=== PATIENT | male | born 1940 | race Hispanic/Latino ===

== ENCOUNTER 2020-02-13 12:06 | Observation (INO) | payer MEDICARE, BC ==
[~2020-02-13] VITALS: Ht 162.6 cm; Wt 80.3 kg
[~2020-02-13 12:06] MED LIST: AMIO200T PO; ASPI-667 PO; ATOR20TA PO; LACT1CAP5 PO; LISI10TA2 PO; METO-238 PO; POTA10TA6 PO; WARF-35 PO; WARF2TAB98 PO; WARF5TAB2 PO
[2020-02-13 14:50] VITALS: BP 110/77
--- NOTE | 2020-02-13 18:15 | ER.PDOC ---
General Chief Complaint: Flank Pain Stated Complaint: BACK PAIN Time seen by MD: 18:10 Source: patient Exam Limitations: language barrier History of Present Illness Initial Comments Patient with a several day history of difficulty urinating, and bilateral flank pain, as well lower abdominal pain. Timing/Duration: getting worse, other (2-3 days) Severity/Quality: moderate Radiation: flank (bilateral) Associated Symptoms: back pain, nausea/vomiting (No vomiting) Exacerbated by: other Relieved By: nothing Allergies: Coded Allergies: No Known Allergies (Unverified , 12/20/14) Home Meds Active Scripts Potassium Chloride (KLOR-CON 10) 10 Meq Tablet.er, 20 MEQ PO DAILY, #60 Prov:DARIA GRIFFIN MD 12/23/14 Warfarin Sodium (COUMADIN) 5 Mg Tablet, 5 MG PO 17, #30 TABLET Prov:DARIA GRIFFIN MD 12/23/14 Amiodarone Hcl (CORDARONE) 200 Mg Tablet, 200 MG PO BID, #60 TABLET Prov:DARIA GRIFFIN MD 12/23/14 Reported Medications Lactobacillus Rhamnosus R0011 (PROBIOTIC DIGESTIVE CARE) 1 Each Capsule, 1 EACH PO DAILY, CAPSULE 12/20/14 Lisinopril (LISINOPRIL) 10 Mg Tablet, 1 TAB PO DAILY, #30 TAB 5 Refills 12/20/14 Aspirin (ASPIRIN) 81 Mg Tab.chew, 1 TAB PO DAILY, #30 TAB 3 Refills 12/20/14 Atorvastatin 20MG (LIPITOR 20MG) 20 Mg Tablet, 1 TAB PO DAILY, #90 TAB 1 Refill 12/20/14 Metoprolol Succinate (METOPROLOL SUCCINATE) 100 Mg Tab.er.24h, 1 TAB PO DAILY, #30 TAB 5 Refills 12/20/14 Vital Signs First Vital Signs Date Time Temp Pulse Resp B/P (MAP) Pulse Ox O2 Delivery O2 Flow Rate FiO2 02/13/20 14:50 97.7 63 16 02/13/20 14:50 100 Last Vital Signs Date Time Temp Pulse Resp B/P (MAP) Pulse Ox O2 Delivery O2 Flow Rate FiO2 02/13/20 14:50 97.7 63 16 100 Past Medical History Medical History: arrhythmia, coronary artery disease, hypertension Surgical History: pacemaker/ICD Social History Alcohol Use: none Drug Use: none Reviewed Nursing Reviewed: Vital Signs, Abn. Noted, Nursing Assessment Constitutional: malaise EENTM: no symptoms reported Respiratory: no symptoms reported Cardiovascular: no symptoms reported Gastrointestinal: abdominal pain; denies constipated, denies diarrhea, denies difficulty swallowing; nausea; denies vomiting Genitourinary: dysuria, flank pain, pain, urgency, other (difficulty with urination) Musculoskeletal: no symptoms reported Skin: no symptoms reported Psychiatric/Neurological: no symptoms reported Endocrine: no symptoms reported Hematologic/Lymphatic: no symptoms reported All Other Systems: Reviewed and Negative Physical Exam General Appearance: WD/WN, Mild Distress HEENT: PERRL/EOMI, Normal ENT Inspection, TMs Normal, Pharynx Normal Neck: Non-Tender, Full Range of Motion, Supple, Normal Inspection Respiratory: chest non-tender, lungs clear, normal breath sounds, no respiratory distress, no accessory muscle use Cardiovascular: Normal Peripheral Pulses, Regular Rate, Rhythm, No Edema, No Gallop, No JVD, No Murmur Gastrointestinal: Normal Bowel Sounds, Guarding, Tenderness (Suprapubic) Back: CVA Tenderness (R) Extremities: Normal Range of Motion, Non-Tender, Normal Inspection, No Pedal Edema, No Calf Tenderness, Normal Capillary Refill, Pelvis Stable Neurologic/Psychiatric: systems spec II-XII NML as Tested, No Motor/Sensory Deficits, Alert, Normal Mood/Affect, Oriented x 3 Skin: Normal Color, Warm/Dry Lymphatic: No Adenopathy Results/Orders Results/Orders Orders - DIGNA BARROS DO Calcium Gluconate (Calcium Gluconate) (02/13/20 19:56) Ct Abd/Pelvis Wo Iv Contrast (02/13/20 20:08) Routine Vital Signs (02/13/20 20:15) Regular Diet (02/14/20 Breakfast) Intake & Output (02/13/20 20:15) Up In Chair (02/13/20 20:15) Cbc With Auto Diff (02/14/20 05:00) Comprehensive Metabolic Panel (02/14/20 05:00) Admit Orders (02/13/20 20:15) Bed Alarm (02/13/20 20:15) Fall Precautions (02/13/20 20:15) Bedrest With Po Ambulat/Assist (02/13/20 20:15) 0.9 % Sodium Chloride (Ns 1000ml) (02/13/20 20:30) Vital Signs Date Time Temp Pulse Resp B/P (MAP) Pulse Ox O2 Delivery O2 Flow Rate FiO2 02/13/20 14:50 97.7 63 16 100 02/13/20 14:50 97.7 63 16 100 02/13/20 14:50 97.7 63 16 Laboratory Tests Test 02/13/20 18:20 02/13/20 18:25 02/13/20 19:20 White Blood Count 11.3 10^3/uL (4.5-11.0) H Red Blood Count 5.11 10^6/uL (4.50-5.90) Hemoglobin 15.3 g/dL (13.9-16.3) Hematocrit 47.2 % (37.0-53.0) Mean Corpuscular Volume 92.4 fL (78-100) Mean Corpuscular Hemoglobin 29.9 pg (26-34) Mean Corpuscular Hemoglobin Concent 32.4 g/dL (33-36.5) L Red Cell Distribution Width 15.3 % (11.5-14.5) H Platelet Count 187 10^3/uL (150-400) Mean Platelet Volume 9.5 fL (7.8-11.0) Neutrophils (%) (Auto) 60.4 % (41.0-85.0) Lymphocytes (%) (Auto) 28.7 % (24.0-44.0) Monocytes (%) (Auto) 9.4 % (5.0-12.0) Neutrophils # (Auto) 6.9 10^3/uL (1.8-7.7) Lymphocytes # (Auto) 3.25 10^3/uL1 (1.0-4.8) Monocytes # (Auto) 1.1 10^3/uL (0.3-0.8) H Absolute Immature Granulocyte (auto 0.02 10^3 u/L (0-2) Absolute Eosinophils (auto) 0.1 10^3/uL (0.0-0.2) Immature Granulocytes % 0.20 % (0.00-0.50) Eosinophils % 1.1 % (0.0-5.0) Basophils % 0.2 % (0.0-0.2) Basophils # 0.0 10^3/uL (0.0-0.1) Sodium Level 138 mmol/L (132-145) Potassium Level 4.4 mmol/L (3.6-5.2) Chloride Level 104.0 mmol/L (96-109) Carbon Dioxide Level 22.4 mmol/L (20.0-32) Anion Gap 16.0 Blood Urea Nitrogen 41 mg/dL (7-18) H Creatinine 3.03 mg/dL (0.59-1.40) *H Estimated GFR () 24.3 (>/=60) Est GFR (CKD-EPI)(Non-Afr Tajik) 20.1 (>/=60) BUN/Creatinine Ratio 13.0 Glucose Level 118 mg/dL (70-110) H Calcium Level 9.0 mg/dL (8.4-10.5) Total Bilirubin 0.8 mg/dL (0.2-1.0) Aspartate Amino Transferase (AST) 29 U/L (0-35) Alanine Aminotransferase (ALT) 19 U/L (12-78) Alkaline Phosphatase 157 U/L (50-136) H Total Protein 8.2 g/dL (6.4-8.2) Albumin 3.4 g/dL (3.4-5.0) Globulin 4.8 Albumin/Globulin Ratio 0.708 Urine Collection Type UNKNOWN Urine Color YELLOW (YELLOW) Urine Appearance CLEAR (CLEAR) Urine Bilirubin NEGATIVE MG/DL (NEGATIVE) Urine Ketones NEGATIVE (NEGATIVE) Urine Specific [place] 1.015 (1.005-1.035) Urine pH 8.0 (5.0-6.0) Urine Protein 30 mg/dL (NEGATIVE) H Urine Urobilinogen NORMAL (NEGATIVE) Urine Nitrate NEGATIVE (NEGATAIVE) Urine Leukocyte Esterase LARGE (NEGATIVE) Urine Blood SMALL (NEGATIVE) Urine RBC 0-2 RBC/HPF (NONE SEEN) Urine WBC 2-5 WBC/HPF (0-2) Urine Squamous Epithelial Cells RARE #/HPF (FEW) Urine Bacteria NONE SEEN (NONE SEEN) Urine Glucose NORMAL (NEGATIVE) Magnesium Level 2.3 mg/dL (1.8-2.4) Progress Progress Discussed with Dr. Barros at shift change. BUN 41, Creat 3.03, Ca <5.0, UA WNL; 1 amp Ca-gluconate ordered; lab called at 2011 reporting initial Ca was lab error--repeat = 9.0 EKG/XRAY/CT/US EKG Comments: NSR, VR 66, borderline prolonged QT 459, no acute STT changes Consult/PCP Time Consult/PCP Called: 20:03 Consult/PCP: Dr. Green Reason/Comments: will admit #2 Time Consult/PCP Called: 21:25 Consult/PCP: Discussed CT findings with Dr. Green Reason/Comments: will admit here if Dr. Hua can/will consult #3 Time Consult/PCP Called: 21:25 Consult/PCP: DR. Hua Reason/Comments: tried home/cell--VM not set up (verified with house, he is not OOT) ER DEPART Departure Time of Disposition: 20:03 Disposition: 09 ADMITTED INPATIENT Impression: Primary Impression: Renal insufficiency Additional Impression: Acute pyelonephritis Condition: Stable Referrals: PCP,UNKNOWN (PCP) PRIMARY CARE PROVIDER Duration or Time Spent with Pa: 20 min Problem Qualifiers FISH DEGROOT DO Feb 13, 2020 18:15 DIGNA BARROS DO Feb 13, 2020 19:44
[2020-02-13] MEDS ORDERED: LACTATED RINGERS 1,000 ML IV STA (18:27)
[2020-02-13] MEDS ORDERED: LACTATED RINGERS 1,000 ML ONE (18:40)
[2020-02-13 18:41] LABS: CARBON DIOXIDE 22.4 mmol/L (20.0-32)
[2020-02-13 18:45] LABS: BASOPHIL % 0.2 % (0.0-0.2); EOSINOPHIL # 0.1 10^3/uL (0.0-0.2); EOSINOPHIL % 1.1 % (0.0-5.0); LYMPHOCYTES # 3.25 10^3/uL1 (1.0-4.8); LYMPHOCYTES % 28.7 % (24.0-44.0); MEAN CORP HGB 29.9 pg (26-34); MONOCYTES # 1.1 10^3/uL (0.3-0.8); MONOCYTES % 9.4 % (5.0-12.0); NEUTROPHIL # 6.9 10^3/uL (1.8-7.7); NEUTROPHILS % 60.4 % (41.0-85.0); PLATELET COUNT 187 10^3/uL (150-400); RED CELL DISTRIBUTION WIDTH 15.3 % (11.5-14.5)
[2020-02-13 19:00] LABS: APPEARANCE,URINE CLEAR (CLEAR); BILIRUBIN,URINE NEGATIVE (NEGATIVE); UA COLOR YELLOW (YELLOW)
[2020-02-13 19:01] LABS: UROBILINOGEN,URINE NORMAL (NEGATIVE)
--- NOTE | 2020-02-13 19:51 | PCM.EKG ---
[facility] Test Date: 2020-02-13 Test Time: 19:47:52 Pat Name: MERI EDWARDS [facility]: [id number]: 340 Gender: M Transit Specialist: JUDY : 1940 Requested By: FISH DEGROOT Order Number: [id number] Reading MD: Measurements Intervals [place] Rate: 66 P: 55 OH: 176 QRS: 39 QRSD: 103 T: 59 QT: 459 QTc: 481 Interpretive Statements Sinus rhythm Borderline prolonged QT interval No previous ECG available for comparison Please click the below link to view image of tracing.
[2020-02-13] MEDS ORDERED: CALCIUM GLUCONATE IV STA (19:56)
--- NOTE | 2020-02-13 21:16 | DIREP ---
PROCEDURE:CT ABDOMEN/PELVIS W/O CONTRAST COMPARISON:None. INDICATIONS:renal insufficiency r/o obstructive process TECHNIQUE:Axial images were created through the abdomen and pelvis without intravenous contrast material. No oral contrast was administered. Sagittal and coronal reconstructions were performed from source images. FINDINGS: LUNG BASES:Apparent bibasilar atelectasis. Infiltrate is considered less likely. There are multiple nodular opacities at the right lung base, including a conglomerate of approximately 3 nodules measuring approximately 7, 6 and 4 mm at the right lung base. A few additional smaller nodules are also noted. Distal aspect of cardiac pacing leads noted. LIVER:No suspicious focal hepatic lesion. BILIARY:Tiny layering calculi within the dependent aspect of the gallbladder. There is no gallbladder wall thickening or pericholecystic inflammatory stranding. No significant intrahepatic or extrahepatic biliary ductal dilatation is appreciated. PANCREAS:No suspicious pancreatic abnormality. SPLEEN:The spleen is not significantly enlarged. No focal splenic lesion identified. ADRENALS:The adrenal glands are unremarkable. URINARY TRACT:There are bilateral peripelvic and renal cortical cysts with scattered areas of cortical volume loss and scarring, particularly involving the posterior aspect of the lower pole right kidney. There is mild left-sided hydroureteronephrosis with fairly diffuse perinephric and periureteral fat stranding, suspicious for ascending urinary tract infection with left pyelonephritis. There is mild right hydroureteronephrosis is well. No obstructing calculi are identified. AORTA/VASCULAR:Tortuosity of the abdominal aorta without aneurysmal dilatation. RETROPERITONEUM:Retroperitoneal fat stranding appears centered about the left ureter. BOWEL/MESENTERY:Tiny hiatal hernia. No evidence for small bowel obstruction. No gross colonic abnormality. Nonvisualization of the appendix without secondary signs to suggest acute appendicitis. No free air. ABDOMINAL WALL:No significant hernia. PELVIC ORGANS:The urinary bladder is at least moderately distended. The prostate gland is significantly enlarged, measuring approximately 6.2 x 6.2 cm in AP and transverse dimensions. No significant free fluid within the pelvis. 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 There are advanced degenerative changes of the spine with mild compression deformity at T12. CONCLUSION: 1. Mild bilateral hydroureteronephrosis without obstructing calculi. The urinary bladder is at least moderately distended with significantly enlarged prostate gland. Constellation of findings are suspicious for chronic bladder outlet obstruction secondary to the enlarged prostate gland. There is left retroperitoneal and left perinephric fat stranding, suggestive of ascending urinary tract infection with left pyelonephritis. Please correlate with urinalysis. Focal areas of cortical volume loss involving the posterior aspect of the lower pole right kidney would suggest sequela of previous infection. 2. Ill-defined sclerotic foci scattered throughout the imaged axial skeleton are suspicious for osteoblastic metastatic disease. Prostate cancer would be the most common etiology in a male patient of this age group. Consider correlation with PSA as clinically warranted. 3. Multiple small nodules at the right lung base are nonspecific and are superimposed on a background of presumed senescent changes with scattered areas of atelectasis. 4. Cholelithiasis without secondary signs to suggest acute cholecystitis. 5. Additional findings as discussed above. Dictated by: Ernesto Palomino M.D. On 02/13/2020 at 09:03 PM
[2020-02-13] MEDS ORDERED: ROCEPHIN ONE (21:17)
[2020-02-13] MEDS ORDERED: ROCEPHIN 1,000 MG in NS 100ML 100 ML IV STA (21:27)
--- NOTE | 2020-02-13 22:31 | PCM.HP ---
History of Present Illness Hx of Present Illness Patient with a several day history of difficulty urinating, and bilateral flank pain, as well lower abdominal pain. Patient states that he has been having difficulty urinating and frequency. He denies any previous known history of prostate problems or prostate cancer is symptoms have getting been getting worse over the past 2 to 3 days with nausea no vomiting back and flank pain bilaterally. Franco catheter was placed as patient was retaining urine he has experienced relief since placement of the catheter. CT in ER showed the followin. Mild bilateral hydroureteronephrosis without obstructing calculi. The urinary bladder is at least moderately distended with significantly enlarged prostate gland. Constellation of findings are suspicious for chronic bladder outlet obstruction secondary to the enlarged prostate gland. There is left retroperitoneal and left perinephric fat stranding, suggestive of ascending urinary tract infection with left pyelonephritis. Please correlate with urinalysis. Focal areas of cortical volume loss involving the posterior aspect of the lower pole right kidney would suggest sequela of previous infection. 2. Ill-defined sclerotic foci scattered throughout the imaged axial skeleton are suspicious for osteoblastic metastatic disease. Prostate cancer would be the most common etiology in a male patient of this age group. Consider correlation with PSA as clinically warranted. Travel History EBOLA RISK:Travel to/contact w: No Review of Systems Constitutional: No: Fever, Chills, Sweats, Weakness, Malaise, Other Eyes: No: Pain, Vision change, Conjunctivae inflammation, Eyelid inflammation, Other, Redness ENT: No: Ear pain, Ear discharge, Nose pain, Nose discharge, Nose congestion, Mouth pain, Mouth swelling, Throat pain, Throat swelling, Other Respiratory: No: Cough, Dry, Shortness of breath, SOB with excertion, Wheezing, Hemoptysis, Pleuritic Pain, Sputum, Wheezing, Other Gastrointestinal: Nausea, Abdominal Pain; No: Vomiting Genitourinary: Frequency, Retention Musculoskeletal: No: other, neck pain, shoulder pain, arm pain, back pain, hand pain, leg pain, foot pain Skin: No: Rash, Lesions, Jaundice, Bruising, Other Neurological: No: Weakness, Numbness, Incoordination, Change in speech, Confusion, Seizures, Other Allergies: Coded Allergies: No Known Allergies (Unverified , 12/20/14) Scheduled Amiodarone Hcl (Cordarone), 200 MG PO BID Aspirin (Aspirin), 1 TAB PO DAILY, (Reported) Atorvastatin 20MG (Lipitor 20MG), 1 TAB PO DAILY, (Reported) Lactobacillus Rhamnosus R0011 (Probiotic Digestive Care), 1 EACH PO DAILY, (Reported) Lisinopril (Lisinopril), 1 TAB PO DAILY, (Reported) Metoprolol Succinate (Metoprolol Succinate), 1 TAB PO DAILY, (Reported) Potassium Chloride (Klor-Con 10), 20 MEQ PO DAILY Warfarin Sodium (Coumadin), 5 MG PO 17 VTE VTE Risk Score VTE Risk: Score 0-1 = Low Risk (Aggressive mobilization; early ambulation; no VTE prophylaxis required) Score 2: Moderate Risk (Intermittent/Pneumatic Compression Device OR Lovenox/Heparin/Coumadin) Score 3-4: High Risk (Intermittent/Pneumatic Compression Device AND Lovenox/Heparin/Coumadin) Score > or =5: Highest Risk (Intermittent/Pneumatic Compression Device AND Lovenox/Heparin/Coumadin) Mechanical device ordered: Yes Exam Vital Signs Vital Signs Date Time Temp Pulse Resp B/P (MAP) Pulse Ox O2 Delivery O2 Flow Rate FiO2 02/13/20 14:50 97.7 63 16 100 General Appearance: Alert, Oriented X3, Cooperative HEENT: Atraumatic, PERRLA Respiratory: Clear to auscultation Cardiovascular: Regular rate, Normal S1 Abdominal: Other (Franco catheter in place his abdominal pain has improved since placement of the catheter) Extremities: No clubbing, No cyanosis Skin: No rash, No breakdown Neuro: Normal gait, Normal speech, Strength at 5/5 X4 ext, Sensation intact, Cranial nerves 3-12 NL Psych/Mental Status: Mood NL Assessment/Plan Assessment/Plan Assessment/Plan Assessment: 79-year-old male with constellations of findings consistent with prostate cancer that has metastasized no presents with urinary outlet obstruction that appears to be acute on chronic with pyelonephritis Plan: Prostate hyperplasia with urinary obstruction: Obtain PSA with a.m. labs consult Dr. Hua with urology in the a.m. Franco catheter placed to relieve obstruction clear infection due to urine stasis Pyelonephritis: We will treat with ceftriaxone pending urine cultures Renal insufficiency: Likely due to the above last creatinine approximately 5 years ago was 1 creatinine is 3 today we will recheck in the minimum after relieving obstruction and hydrating DVT prophylaxis SCDs Problems: (1) Acute pyelonephritis Status: Acute ICD Code: N10 - Acute pyelonephritis SNOMED: 41422987 (2) Renal insufficiency Status: Acute ICD Code: N28.9 - Disorder of kidney and ureter, unspecified SNOMED: 918628350, [id number] (3) Prostate hyperplasia with urinary obstruction ICD Code: N40.1 - Benign prostatic hyperplasia with lower urinary tract symptoms; N13.8 - Other obstructive and reflux uropathy SNOMED: [id number], [id number] Patient History: Patient reports no known family medical history. JACQUELINE CALLE MD Feb 13, 2020 22:31
[2020-02-13] MEDS ORDERED: SUBLIMAZE IV STA (23:02)
[2020-02-13] MEDS ORDERED: ZOFRAN IV STA (23:02)
[2020-02-13] MEDS ORDERED: SUBLIMAZE ONE (23:18)
[2020-02-13] MEDS ORDERED: ZOFRAN ONE (23:18)
[2020-02-13] MEDS: NS 1000ML 1,000 ML IV SCH (23:47)
[2020-02-14 00:17] VITALS: BP 129/69
[2020-02-14] MEDS ORDERED: NORCO 5MG PO ONE (01:13)
[2020-02-14] MEDS ORDERED: NORCO 5MG PO PRN (01:30)
[2020-02-14 03:35] VITALS: BP 108/52
[2020-02-14 05:31] LABS: BASOPHIL % 0.3 % (0.0-0.2); EOSINOPHIL # 0.1 10^3/uL (0.0-0.2); EOSINOPHIL % 1.7 % (0.0-5.0); LYMPHOCYTES # 0.88 10^3/uL1 (1.0-4.8); LYMPHOCYTES % 12.8 % (24.0-44.0); MONOCYTES # 0.6 10^3/uL (0.3-0.8); NEUTROPHIL # 5.2 10^3/uL (1.8-7.7); NEUTROPHILS % 75.7 % (41.0-85.0); PLATELET COUNT 232 10^3/uL (150-400); RED CELL DISTRIBUTION WIDTH 13.5 % (11.5-14.5)
[2020-02-14 05:51] LABS: CALCIUM 8.4 mg/dL (8.4-10.5); CARBON DIOXIDE 33.8 mmol/L (20.0-32)
[2020-02-14 07:30] VITALS: BP 99/58
--- NOTE | 2020-02-14 09:18 | PRM.PN ---
Subjective Subjective Date: Feb 14, 2020 Time: 09:10 Subjective Patient resting in bed comfortably this morning I spoke to Dr. Gomez with urology who will see the patient later this afternoon. EKG from ER last night reviewed and shows a rate of 66 normal sinus rhythm with no acute ischemic lisa nges PSA returned this morning had 0.33 creatinine improved from 3.03-0.75 after relief of urinary obstruction with Franco catheter. Patient's daughter is with him today and he states that he would like to go back to [place] and follow- up with his regular doctors we discussed that he will keep the Franco catheter in and that he should request the CT records so he can follow-up on findings in the CT scan with her his typical care providers Additional Past Medical history obtained from records: 1. Incessant ventricular tachycardia. 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 4. Hypokalemia. 5. Left ventricular aneurysm. 6. Hypertension. Review of records does show that patient has a cardiac history although he is a poor historian regarding this: ECHO 2015: IMPRESSION: 1. Not well visualized LV with suspected large aneurysmal dilatation at the apex. 2. EF was around 40%. 3. Diastolic dysfunction is highly suspected with E to A reversal. 4. No significant mitral pathology. 5. No significant aortic pathology. 6. Normal pulmonary artery pressure. 7. No visible pericardial effusion. Left Heart Cath 2015: IMPRESSION: 1. Minimal ostial RCA disease. 2. Mild lumen irregularity in the mid LAD. 3. Right dominant system. 4. Normal left main. 5. Significant finding of a large aneurysm with free communication with the LV cavity. 6. Severe LV dysfunction. EF around 30%. 7. Normal ascending and thoracic aorta. 8. No finding of any bypass or valvular procedure Chart Review from 2015: The patient is a 74-year-old gentleman who has a cardiac history that includes recent open heart procedure 2 months ago at [place]. Unfortunately, the patient nor the family recognized any of the details of the procedure. Distorted they delivered to us at [facility] was that the surgeon went in did the sternotomy followed by closing down without performing any further procedures. This event was followed a month later with the placement of ICD device and the patient was on medical therapy. There was no clear understanding of the procedure or the indication. The patient was stabilized using lidocaine drip and there was a reportable and recorded episodes of ventricular fibrillation and ventricular tachycardia. Ischemic coronary artery disease was the potential etiology for his fatal arrhythmia. Therefore, I felt the need for coronary study and potential study of any bypass graft that might have been performed without proper communication. Unfortunately, this patient presented on a long weekend at the [place] that we were unable to retain any of his records from the previous hospitalization in [place] where he had his open heart procedure Patient History: Patient reports no known family medical history. VTE VTE Risk Total Score: 3 VTE Risk Score VTE Risk: Score 0-1 = Low Risk (Aggressive mobilization; early ambulation; no VTE prophylaxis required) Score 2: Moderate Risk (Intermittent/Pneumatic Compression Device OR Lovenox/Heparin/Coumadin) Score 3-4: High Risk (Intermittent/Pneumatic Compression Device AND Lovenox/Heparin/Coumadin) Score > or =5: Highest Risk (Intermittent/Pneumatic Compression Device AND Lovenox/Heparin/Coumadin) Mechanical device ordered: Yes Review of Systems Constitutional: No: Fever, Chills, Sweats, Weakness, Malaise, Other Eyes: No: Pain, Vision change, Conjunctivae inflammation, Eyelid inflammation, Other, Redness ENT: No: Ear pain, Ear discharge, Nose pain, Nose discharge, Nose congestion, Mouth pain, Mouth swelling, Throat pain, Throat swelling, Other Respiratory: No: Cough, Dry, Shortness of breath, SOB with excertion, Wheezing, Hemoptysis, Pleuritic Pain, Sputum, Wheezing, Other Gastrointestinal: No: Nausea, Vomiting, Abdominal Pain Genitourinary: No Frequency, No Retention Musculoskeletal: No: other, neck pain, shoulder pain, arm pain, back pain, hand pain, leg pain, foot pain Skin: No: Rash, Lesions, Jaundice, Bruising, Other Neurological: No: Weakness, Numbness, Incoordination, Change in speech, Confusion, Seizures, Other Allergies: Coded Allergies: No Known Allergies (Unverified , 12/20/14) Scheduled Amiodarone Hcl (Cordarone), 200 MG PO BID Aspirin (Aspirin), 1 TAB PO DAILY, (Reported) Atorvastatin 20MG (Lipitor 20MG), 1 TAB PO DAILY, (Reported) Ciprofloxacin Hcl (Ciprofloxacin Hcl), 1 TAB PO BID Lactobacillus Rhamnosus R0011 (Probiotic Digestive Care), 1 EACH PO DAILY, (Reported) Lisinopril (Lisinopril), 1 TAB PO DAILY, (Reported) Metoprolol Succinate (Metoprolol Succinate), 1 TAB PO DAILY, (Reported) Potassium Chloride (Klor-Con 10), 20 MEQ PO DAILY Warfarin Sodium (Coumadin), 5 MG PO 17 Objective Vitals and I/O Vital Sign - Last 24 Hours 02/13/20 02/13/20 02/13/20 02/14/20 14:50 14:50 14:50 00:04 Temp 97.7 97.7 97.7 Pulse 63 63 63 Resp 16 16 16 Pulse Ox 100 100 O2 Delivery Room Air 02/14/20 02/14/20 02/14/20 02/14/20 00:17 03:35 06:11 07:30 Temp 98.5 98.2 Pulse 75 78 60 Resp 18 20 16 B/P (MAP) 129/69 (89) 108/52 (70) 99/58 (72) Pulse Ox 95 94 90 O2 Delivery Room Air Room Air Room Air Room Air Intake and Output 02/14/20 07:00 Intake Total 521 ml Output Total 2600 ml Balance -2079 ml General: Alert, Oriented X3, Cooperative HEENT: Atraumatic, PERRLA Lungs: Clear to auscultation, Other (Midline sternotomy incision that is remote well-healed) Heart: Regular rate, Normal S1 Abdomen: Normal bowel sounds, Soft, No tenderness, Other (Franco catheter in place his abdominal pain has improved since placement of the catheter) Extremities: No clubbing, No cyanosis Neuro: Normal gait, Normal speech, Strength at 5/5 X4 ext, Sensation intact, Cranial nerves 3-12 NL Psych/Mental Status: Mood NL All Results(Lab/Rad) Laboratory Tests Test 02/13/20 18:20 02/13/20 18:25 02/13/20 19:20 02/13/20 20:55 White Blood Count 11.3 10^3/uL Red Blood Count 5.11 10^6/uL Hemoglobin 15.3 g/dL Hematocrit 47.2 % Mean Corpuscular Volume 92.4 fL Mean Corpuscular Hemoglobin 29.9 pg Mean Corpuscular Hemoglobin Concent 32.4 g/dL Red Cell Distribution Width 15.3 % Platelet Count 187 10^3/uL Mean Platelet Volume 9.5 fL Neutrophils (%) (Auto) 60.4 % Lymphocytes (%) (Auto) 28.7 % Monocytes (%) (Auto) 9.4 % Neutrophils # (Auto) 6.9 10^3/uL Lymphocytes # (Auto) 3.25 10^3/uL1 Monocytes # (Auto) 1.1 10^3/uL Absolute Immature Granulocyte (auto 0.02 10^3 u/L Absolute Eosinophils (auto) 0.1 10^3/uL Immature Granulocytes % 0.20 % Eosinophils % 1.1 % Basophils % 0.2 % Basophils # 0.0 10^3/uL Sodium Level 138 mmol/L Potassium Level 4.4 mmol/L Chloride Level 104.0 mmol/L Carbon Dioxide Level 22.4 mmol/L Anion Gap 16.0 Blood Urea Nitrogen 41 mg/dL Creatinine 3.03 mg/dL Estimated GFR () 24.3 Est GFR (CKD-EPI)(Non-Afr Czech) 20.1 BUN/Creatinine Ratio 13.0 Glucose Level 118 mg/dL Calcium Level 9.0 mg/dL Total Bilirubin 0.8 mg/dL Aspartate Amino Transf (AST/SGOT) 29 U/L Alanine Aminotransferase (ALT/SGPT) 19 U/L Alkaline Phosphatase 157 U/L Total Protein 8.2 g/dL Albumin 3.4 g/dL Globulin 4.8 Albumin/Globulin Ratio 0.708 Urine Collection Type UNKNOWN Urine Color YELLOW Urine Appearance CLEAR Urine Bilirubin NEGATIVE MG/DL Urine Ketones NEGATIVE Urine Specific [place] 1.015 Urine pH 8.0 Urine Protein 30 mg/dL Urine Urobilinogen NORMAL Urine Nitrate NEGATIVE Urine Leukocyte Esterase LARGE Urine Blood SMALL Urine RBC 0-2 RBC/HPF Urine WBC 2-5 WBC/HPF Urine Squamous Epithelial Cells RARE #/HPF Urine Bacteria NONE SEEN Urine Glucose NORMAL Magnesium Level 2.3 mg/dL SARS-CoV-2 Antigen (Rapid) NEGATIVE Test 02/14/20 04:40 White Blood Count 6.9 10^3/uL Red Blood Count 4.41 10^6/uL Hemoglobin 14.1 g/dL Hematocrit 42.1 % Mean Corpuscular Volume 95.5 fL Mean Corpuscular Hemoglobin 32.0 pg Mean Corpuscular Hemoglobin Concent 33.5 g/dL Red Cell Distribution Width 13.5 % Platelet Count 232 10^3/uL Mean Platelet Volume 10.6 fL Neutrophils (%) (Auto) 75.7 % Lymphocytes (%) (Auto) 12.8 % Monocytes (%) (Auto) 8.0 % Neutrophils # (Auto) 5.2 10^3/uL Lymphocytes # (Auto) 0.88 10^3/uL1 Monocytes # (Auto) 0.6 10^3/uL Absolute Immature Granulocyte (auto 0.10 10^3 u/L Absolute Eosinophils (auto) 0.1 10^3/uL Immature Granulocytes % 1.50 % Eosinophils % 1.7 % Basophils % 0.3 % Basophils # 0.0 10^3/uL Sodium Level 142 mmol/L Potassium Level 3.8 mmol/L Chloride Level 105.0 mmol/L Carbon Dioxide Level 33.8 mmol/L Anion Gap 7.0 Blood Urea Nitrogen 15 mg/dL Creatinine 0.75 mg/dL Estimated GFR () 121.6 Est GFR (CKD-EPI)(Non-Afr Czech) 100.5 BUN/Creatinine Ratio 20.0 Glucose Level 122 mg/dL Calcium Level 8.4 mg/dL Total Bilirubin 0.3 mg/dL Aspartate Amino Transf (AST/SGOT) 16 U/L Alanine Aminotransferase (ALT/SGPT) 37 U/L Alkaline Phosphatase 77 U/L Total Protein 6.8 g/dL Albumin 2.1 g/dL Globulin 4.7 Albumin/Globulin Ratio 0.446 Prostate Specific Ag Free & Total 0.33 ng/mL Current Medications Medications (Trade) Dose Ordered Sig/Enoch Route PRN Reason Start Time Stop Time Status Last Admin Dose Admin Calcium Gluconate (Calcium Gluconate) 1,000 mg STAT STAT IV 02/13/20 19:56 02/13/20 20:16 DC Sodium Chloride 1,000 ml @ 150 mls/hr Q8H IV 02/13/20 20:30 03/14/20 20:29 02/13/20 23:47 Ceftriaxone Sodium (Rocephin) 1,000 mg STK-MED ONCE .ROUTE 02/13/20 21:17 02/13/20 21:19 DC Ceftriaxone Sodium 1000 mg/ Sodium Chloride 100 ml @ 100 mls/hr STAT STAT IV 02/13/20 21:27 02/13/20 22:26 DC 02/13/20 21:47 Fentanyl Citrate (Sublimaze) 50 mcg STAT STAT IV 02/13/20 23:02 02/13/20 23:04 DC 02/13/20 23:23 Ondansetron HCl (Zofran) 4 mg STAT STAT IV 02/13/20 23:02 02/13/20 23:04 DC 02/13/20 23:22 Ondansetron HCl (Zofran) 4 mg STK-MED ONCE .ROUTE 02/13/20 23:18 02/13/20 23:19 DC Fentanyl Citrate (Sublimaze) 50 mcg STK-MED ONCE .ROUTE 02/13/20 23:18 02/13/20 23:20 DC Acetaminophen/ Hydrocodone Bitart ([place] 5mg) 1 ea Q4HR PRN PO PAIN 4 - 6 02/14/20 01:30 03/15/20 01:29 Acetaminophen/ Hydrocodone Bitart ([place] 5mg) 1 ea STK-MED ONCE PO 02/14/20 01:13 02/14/20 01:16 DC Course Sepsis Screening Results: Posi: NEGATIVE Sepsis Qualifier/Stage: NO DEFINITE RISK Duration or Total Time Spent w: 20 min Vitals & review Data Vital Sign - Last 24 Hours 02/13/20 02/13/20 02/13/20 02/14/20 14:50 14:50 14:50 00:04 Temp 97.7 97.7 97.7 Pulse 63 63 63 Resp 16 16 16 Pulse Ox 100 100 O2 Delivery Room Air 02/14/20 02/14/20 02/14/20 02/14/20 00:17 03:35 06:11 07:30 Temp 98.5 98.2 Pulse 75 78 60 Resp 18 20 16 B/P (MAP) 129/69 (89) 108/52 (70) 99/58 (72) Pulse Ox 95 94 90 O2 Delivery Room Air Room Air Room Air Room Air Intake and Output 02/14/20 07:00 Intake Total 521 ml Output Total 2600 ml Balance -2079 ml Laboratory Tests Test 02/13/20 18:20 02/13/20 18:25 02/13/20 19:20 02/13/20 20:55 White Blood Count 11.3 10^3/uL Red Blood Count 5.11 10^6/uL Hemoglobin 15.3 g/dL Hematocrit 47.2 % Mean Corpuscular Volume 92.4 fL Mean Corpuscular Hemoglobin 29.9 pg Mean Corpuscular Hemoglobin Concent 32.4 g/dL Red Cell Distribution Width 15.3 % Platelet Count 187 10^3/uL Mean Platelet Volume 9.5 fL Neutrophils (%) (Auto) 60.4 % Lymphocytes (%) (Auto) 28.7 % Monocytes (%) (Auto) 9.4 % Neutrophils # (Auto) 6.9 10^3/uL Lymphocytes # (Auto) 3.25 10^3/uL1 Monocytes # (Auto) 1.1 10^3/uL Absolute Immature Granulocyte (auto 0.02 10^3 u/L Absolute Eosinophils (auto) 0.1 10^3/uL Immature Granulocytes % 0.20 % Eosinophils % 1.1 % Basophils % 0.2 % Basophils # 0.0 10^3/uL Sodium Level 138 mmol/L Potassium Level 4.4 mmol/L Chloride Level 104.0 mmol/L Carbon Dioxide Level 22.4 mmol/L Anion Gap 16.0 Blood Urea Nitrogen 41 mg/dL Creatinine 3.03 mg/dL Estimated GFR () 24.3 Est GFR (CKD-EPI)(Non-Afr Czech) 20.1 BUN/Creatinine Ratio 13.0 Glucose Level 118 mg/dL Calcium Level 9.0 mg/dL Total Bilirubin 0.8 mg/dL Aspartate Amino Transf (AST/SGOT) 29 U/L Alanine Aminotransferase (ALT/SGPT) 19 U/L Alkaline Phosphatase 157 U/L Total Protein 8.2 g/dL Albumin 3.4 g/dL Globulin 4.8 Albumin/Globulin Ratio 0.708 Urine Collection Type UNKNOWN Urine Color YELLOW Urine Appearance CLEAR Urine Bilirubin NEGATIVE MG/DL Urine Ketones NEGATIVE Urine Specific [place] 1.015 Urine pH 8.0 Urine Protein 30 mg/dL Urine Urobilinogen NORMAL Urine Nitrate NEGATIVE Urine Leukocyte Esterase LARGE Urine Blood SMALL Urine RBC 0-2 RBC/HPF Urine WBC 2-5 WBC/HPF Urine Squamous Epithelial Cells RARE #/HPF Urine Bacteria NONE SEEN Urine Glucose NORMAL Magnesium Level 2.3 mg/dL SARS-CoV-2 Antigen (Rapid) NEGATIVE Test 02/14/20 04:40 White Blood Count 6.9 10^3/uL Red Blood Count 4.41 10^6/uL Hemoglobin 14.1 g/dL Hematocrit 42.1 % Mean Corpuscular Volume 95.5 fL Mean Corpuscular Hemoglobin 32.0 pg Mean Corpuscular Hemoglobin Concent 33.5 g/dL Red Cell Distribution Width 13.5 % Platelet Count 232 10^3/uL Mean Platelet Volume 10.6 fL Neutrophils (%) (Auto) 75.7 % Lymphocytes (%) (Auto) 12.8 % Monocytes (%) (Auto) 8.0 % Neutrophils # (Auto) 5.2 10^3/uL Lymphocytes # (Auto) 0.88 10^3/uL1 Monocytes # (Auto) 0.6 10^3/uL Absolute Immature Granulocyte (auto 0.10 10^3 u/L Absolute Eosinophils (auto) 0.1 10^3/uL Immature Granulocytes % 1.50 % Eosinophils % 1.7 % Basophils % 0.3 % Basophils # 0.0 10^3/uL Sodium Level 142 mmol/L Potassium Level 3.8 mmol/L Chloride Level 105.0 mmol/L Carbon Dioxide Level 33.8 mmol/L Anion Gap 7.0 Blood Urea Nitrogen 15 mg/dL Creatinine 0.75 mg/dL Estimated GFR () 121.6 Est GFR (CKD-EPI)(Non-Afr Czech) 100.5 BUN/Creatinine Ratio 20.0 Glucose Level 122 mg/dL Calcium Level 8.4 mg/dL Total Bilirubin 0.3 mg/dL Aspartate Amino Transf (AST/SGOT) 16 U/L Alanine Aminotransferase (ALT/SGPT) 37 U/L Alkaline Phosphatase 77 U/L Total Protein 6.8 g/dL Albumin 2.1 g/dL Globulin 4.7 Albumin/Globulin Ratio 0.446 Prostate Specific Ag Free & Total 0.33 ng/mL Current Medications Medications (Trade) Dose Ordered Sig/Enoch PRN Reason Start Time Stop Time Status Last Admin Acetaminophen/ Hydrocodone Bitart ([place] 5mg) 1 ea Q4HR PRN PAIN 4 - 6 02/14/20 01:30 03/15/20 01:29 Sodium Chloride 1,000 ml @ 150 mls/hr Q8H 02/13/20 20:30 03/14/20 20:29 02/13/20 23:47 LEVEL 1 SEPSIS INFECTION CRITE: ABX Therapy LEVEL 2-SIRS (LIST ALL THAT AP: None/Not assessed Hematologic Evidence: None/Not assessed Hepatic Evidence: None/Not assessed Neurological Evidence: None/Not assessed Renal Evidence: None/Not assessed O2 Sat by Pulse Oximetry: 90 Assessment/Plan Assessment/Plan Assessment/Plan Assessment: 79-year-old male with urinary outlet obstruction with pyelonephritis PSA has returned to normal range patient does have an extensive cardiac history as above spoke with Dr. Hua will do cardiac work-up to evaluate if patient is a potential candidate for any procedures Plan: Prostate hyperplasia with urinary obstruction: PSA 0.[address] Hua with urology he will see the patient. Franco catheter placed to relieve obstruction. Patient declined cystoscopy here will continue to use the Franco c atheter and follow-up with his regular doctors in [place] per his preference and his daughter's preference Pyelonephritis: We will treat with ceftriaxone pending urine cultures Patient discharged on Cipro pending further culture results Renal insufficiency: Likely due to the above last creatinine approximately 5 years ago was 1 creatinine is 3 today. Resolved with Franco DVT prophylaxis SHERs JACQUELINE CALLE MD Feb 14, 2020 09:18
[2020-02-14] MEDS: NS 1000ML 1,000 ML IV SCH (10:18)
[2020-02-14] MEDS ORDERED: CIPR500T3 PO (11:16)
--- NOTE | 2020-02-14 11:17 | PRM.DC ---
Discharge Summary Date of Discharge: Feb 14, 2020 Time of Request to Discharge: 11:16 Hospital Course This is a 79-year-old male who was admitted last night because of urinary retention. The patient has indwelling Franco catheter. The patient was referred for further urological evaluation. The laboratory except for the creatinine was a little bit elevated to 3 and patient has a previous history of heart disease. Currently, the vital signs are stable and he needs a cystoscopic evaluation for further management. Case was discussed with the patient and also with her daughter; however, the daughter wanted him to be discharged today and to be brought back to where he lives in [place] for further management were all his physicians reside. After relief of the obstruction and he would like to go home and follow-up with his regular providers as above we will be discharged on Cipro pending further cultures was treated with ceftriaxone in the hospital. Patient was treated in the hospital with IV fluids ceftriaxone and Franco catheter to drain his back b ladder his Patient History: Patient reports no known family medical history. General: Alert, Oriented X3, Cooperative HEENT: Atraumatic Neck: Supple, No JVD Lungs: Clear to auscultation, Normal air movement Heart: Regular rate, Normal S1 Abdomen: Normal bowel sounds, Soft, No tenderness, Other (Franco catheter in place) Scheduled Amiodarone Hcl (Cordarone), 200 MG PO BID Aspirin (Aspirin), 1 TAB PO DAILY, (Reported) Atorvastatin 20MG (Lipitor 20MG), 1 TAB PO DAILY, (Reported) Ciprofloxacin Hcl (Ciprofloxacin Hcl), 1 TAB PO BID Lactobacillus Rhamnosus R0011 (Probiotic Digestive Care), 1 EACH PO DAILY, (Reported) Lisinopril (Lisinopril), 1 TAB PO DAILY, (Reported) Metoprolol Succinate (Metoprolol Succinate), 1 TAB PO DAILY, (Reported) Potassium Chloride (Klor-Con 10), 20 MEQ PO DAILY Warfarin Sodium (Coumadin), 5 MG PO 17 Sepsis Evaluation @ Discharge Vital Sign - Last 24 Hours 02/13/20 02/13/20 02/13/20 02/14/20 14:50 14:50 14:50 00:04 Temp 97.7 97.7 97.7 Pulse 63 63 63 Resp 16 16 16 Pulse Ox 100 100 O2 Delivery Room Air 02/14/20 02/14/20 02/14/20 02/14/20 00:17 03:35 06:11 07:30 Temp 98.5 98.2 Pulse 75 78 60 Resp 18 20 16 B/P (MAP) 129/69 (89) 108/52 (70) 99/58 (72) Pulse Ox 95 94 90 O2 Delivery Room Air Room Air Room Air Room Air Intake and Output 02/14/20 07:00 Intake Total 521 ml Output Total 2600 ml Balance -2079 ml Laboratory Tests Test 02/13/20 18:20 02/13/20 18:25 02/13/20 19:20 02/13/20 20:55 White Blood Count 11.3 10^3/uL Red Blood Count 5.11 10^6/uL Hemoglobin 15.3 g/dL Hematocrit 47.2 % Mean Corpuscular Volume 92.4 fL Mean Corpuscular Hemoglobin 29.9 pg Mean Corpuscular Hemoglobin Concent 32.4 g/dL Red Cell Distribution Width 15.3 % Platelet Count 187 10^3/uL Mean Platelet Volume 9.5 fL Neutrophils (%) (Auto) 60.4 % Lymphocytes (%) (Auto) 28.7 % Monocytes (%) (Auto) 9.4 % Neutrophils # (Auto) 6.9 10^3/uL Lymphocytes # (Auto) 3.25 10^3/uL1 Monocytes # (Auto) 1.1 10^3/uL Absolute Immature Granulocyte (auto 0.02 10^3 u/L Absolute Eosinophils (auto) 0.1 10^3/uL Immature Granulocytes % 0.20 % Eosinophils % 1.1 % Basophils % 0.2 % Basophils # 0.0 10^3/uL Sodium Level 138 mmol/L Potassium Level 4.4 mmol/L Chloride Level 104.0 mmol/L Carbon Dioxide Level 22.4 mmol/L Anion Gap 16.0 Blood Urea Nitrogen 41 mg/dL Creatinine 3.03 mg/dL Estimated GFR () 24.3 Est GFR (CKD-EPI)(Non-Afr Japanese) 20.1 BUN/Creatinine Ratio 13.0 Glucose Level 118 mg/dL Calcium Level 9.0 mg/dL Total Bilirubin 0.8 mg/dL Aspartate Amino Transf (AST/SGOT) 29 U/L Alanine Aminotransferase (ALT/SGPT) 19 U/L Alkaline Phosphatase 157 U/L Total Protein 8.2 g/dL Albumin 3.4 g/dL Globulin 4.8 Albumin/Globulin Ratio 0.708 Urine Collection Type UNKNOWN Urine Color YELLOW Urine Appearance CLEAR Urine Bilirubin NEGATIVE MG/DL Urine Ketones NEGATIVE Urine Specific [place] 1.015 Urine pH 8.0 Urine Protein 30 mg/dL Urine Urobilinogen NORMAL Urine Nitrate NEGATIVE Urine Leukocyte Esterase LARGE Urine Blood SMALL Urine RBC 0-2 RBC/HPF Urine WBC 2-5 WBC/HPF Urine Squamous Epithelial Cells RARE #/HPF Urine Bacteria NONE SEEN Urine Glucose NORMAL Magnesium Level 2.3 mg/dL SARS-CoV-2 Antigen (Rapid) NEGATIVE Test 02/14/20 04:40 White Blood Count 6.9 10^3/uL Red Blood Count 4.41 10^6/uL Hemoglobin 14.1 g/dL Hematocrit 42.1 % Mean Corpuscular Volume 95.5 fL Mean Corpuscular Hemoglobin 32.0 pg Mean Corpuscular Hemoglobin Concent 33.5 g/dL Red Cell Distribution Width 13.5 % Platelet Count 232 10^3/uL Mean Platelet Volume 10.6 fL Neutrophils (%) (Auto) 75.7 % Lymphocytes (%) (Auto) 12.8 % Monocytes (%) (Auto) 8.0 % Neutrophils # (Auto) 5.2 10^3/uL Lymphocytes # (Auto) 0.88 10^3/uL1 Monocytes # (Auto) 0.6 10^3/uL Absolute Immature Granulocyte (auto 0.10 10^3 u/L Absolute Eosinophils (auto) 0.1 10^3/uL Immature Granulocytes % 1.50 % Eosinophils % 1.7 % Basophils % 0.3 % Basophils # 0.0 10^3/uL Sodium Level 142 mmol/L Potassium Level 3.8 mmol/L Chloride Level 105.0 mmol/L Carbon Dioxide Level 33.8 mmol/L Anion Gap 7.0 Blood Urea Nitrogen 15 mg/dL Creatinine 0.75 mg/dL Estimated GFR () 121.6 Est GFR (CKD-EPI)(Non-Afr Japanese) 100.5 BUN/Creatinine Ratio 20.0 Glucose Level 122 mg/dL Calcium Level 8.4 mg/dL Total Bilirubin 0.3 mg/dL Aspartate Amino Transf (AST/SGOT) 16 U/L Alanine Aminotransferase (ALT/SGPT) 37 U/L Alkaline Phosphatase 77 U/L Total Protein 6.8 g/dL Albumin 2.1 g/dL Globulin 4.7 Albumin/Globulin Ratio 0.446 Prostate Specific Ag Free & Total 0.33 ng/mL Current Medications Medications (Trade) Dose Ordered Sig/Enoch PRN Reason Start Time Stop Time Status Last Admin Acetaminophen/ Hydrocodone Bitart ([place] 5mg) 1 ea Q4HR PRN PAIN 4 - 6 02/14/20 01:30 03/15/20 01:29 Sodium Chloride 1,000 ml @ 150 mls/hr Q8H 02/13/20 20:30 03/14/20 20:29 02/13/20 23:47 Course Sepsis Screening Results: Posi: NEGATIVE Sepsis Qualifier/Stage: NO DEFINITE RISK Duration or Total Time Spent w: 20 min Vitals & review Data Vital Sign - Last 24 Hours 02/13/20 02/13/20 02/13/20 02/14/20 14:50 14:50 14:50 00:04 Temp 97.7 97.7 97.7 Pulse 63 63 63 Resp 16 16 16 Pulse Ox 100 100 O2 Delivery Room Air 02/14/20 02/14/20 02/14/20 02/14/20 00:17 03:35 06:11 07:30 Temp 98.5 98.2 Pulse 75 78 60 Resp 18 20 16 B/P (MAP) 129/69 (89) 108/52 (70) 99/58 (72) Pulse Ox 95 94 90 O2 Delivery Room Air Room Air Room Air Room Air Intake and Output 02/14/20 07:00 Intake Total 521 ml Output Total 2600 ml Balance -2079 ml Laboratory Tests Test 02/13/20 18:20 02/13/20 18:25 02/13/20 19:20 02/13/20 20:55 White Blood Count 11.3 10^3/uL Red Blood Count 5.11 10^6/uL Hemoglobin 15.3 g/dL Hematocrit 47.2 % Mean Corpuscular Volume 92.4 fL Mean Corpuscular Hemoglobin 29.9 pg Mean Corpuscular Hemoglobin Concent 32.4 g/dL Red Cell Distribution Width 15.3 % Platelet Count 187 10^3/uL Mean Platelet Volume 9.5 fL Neutrophils (%) (Auto) 60.4 % Lymphocytes (%) (Auto) 28.7 % Monocytes (%) (Auto) 9.4 % Neutrophils # (Auto) 6.9 10^3/uL Lymphocytes # (Auto) 3.25 10^3/uL1 Monocytes # (Auto) 1.1 10^3/uL Absolute Immature Granulocyte (auto 0.02 10^3 u/L Absolute Eosinophils (auto) 0.1 10^3/uL Immature Granulocytes % 0.20 % Eosinophils % 1.1 % Basophils % 0.2 % Basophils # 0.0 10^3/uL Sodium Level 138 mmol/L Potassium Level 4.4 mmol/L Chloride Level 104.0 mmol/L Carbon Dioxide Level 22.4 mmol/L Anion Gap 16.0 Blood Urea Nitrogen 41 mg/dL Creatinine 3.03 mg/dL Estimated GFR () 24.3 Est GFR (CKD-EPI)(Non-Afr Japanese) 20.1 BUN/Creatinine Ratio 13.0 Glucose Level 118 mg/dL Calcium Level 9.0 mg/dL Total Bilirubin 0.8 mg/dL Aspartate Amino Transf (AST/SGOT) 29 U/L Alanine Aminotransferase (ALT/SGPT) 19 U/L Alkaline Phosphatase 157 U/L Total Protein 8.2 g/dL Albumin 3.4 g/dL Globulin 4.8 Albumin/Globulin Ratio 0.708 Urine Collection Type UNKNOWN Urine Color YELLOW Urine Appearance CLEAR Urine Bilirubin NEGATIVE MG/DL Urine Ketones NEGATIVE Urine Specific [place] 1.015 Urine pH 8.0 Urine Protein 30 mg/dL Urine Urobilinogen NORMAL Urine Nitrate NEGATIVE Urine Leukocyte Esterase LARGE Urine Blood SMALL Urine RBC 0-2 RBC/HPF Urine WBC 2-5 WBC/HPF Urine Squamous Epithelial Cells RARE #/HPF Urine Bacteria NONE SEEN Urine Glucose NORMAL Magnesium Level 2.3 mg/dL SARS-CoV-2 Antigen (Rapid) NEGATIVE Test 02/14/20 04:40 White Blood Count 6.9 10^3/uL Red Blood Count 4.41 10^6/uL Hemoglobin 14.1 g/dL Hematocrit 42.1 % Mean Corpuscular Volume 95.5 fL Mean Corpuscular Hemoglobin 32.0 pg Mean Corpuscular Hemoglobin Concent 33.5 g/dL Red Cell Distribution Width 13.5 % Platelet Count 232 10^3/uL Mean Platelet Volume 10.6 fL Neutrophils (%) (Auto) 75.7 % Lymphocytes (%) (Auto) 12.8 % Monocytes (%) (Auto) 8.0 % Neutrophils # (Auto) 5.2 10^3/uL Lymphocytes # (Auto) 0.88 10^3/uL1 Monocytes # (Auto) 0.6 10^3/uL Absolute Immature Granulocyte (auto 0.10 10^3 u/L Absolute Eosinophils (auto) 0.1 10^3/uL Immature Granulocytes % 1.50 % Eosinophils % 1.7 % Basophils % 0.3 % Basophils # 0.0 10^3/uL Sodium Level 142 mmol/L Potassium Level 3.8 mmol/L Chloride Level 105.0 mmol/L Carbon Dioxide Level 33.8 mmol/L Anion Gap 7.0 Blood Urea Nitrogen 15 mg/dL Creatinine 0.75 mg/dL Estimated GFR () 121.6 Est GFR (CKD-EPI)(Non-Afr Japanese) 100.5 BUN/Creatinine Ratio 20.0 Glucose Level 122 mg/dL Calcium Level 8.4 mg/dL Total Bilirubin 0.3 mg/dL Aspartate Amino Transf (AST/SGOT) 16 U/L Alanine Aminotransferase (ALT/SGPT) 37 U/L Alkaline Phosphatase 77 U/L Total Protein 6.8 g/dL Albumin 2.1 g/dL Globulin 4.7 Albumin/Globulin Ratio 0.446 Prostate Specific Ag Free & Total 0.33 ng/mL Current Medications Medications (Trade) Dose Ordered Sig/Enoch PRN Reason Start Time Stop Time Status Last Admin Acetaminophen/ Hydrocodone Bitart ([place] 5mg) 1 ea Q4HR PRN PAIN 4 - 6 02/14/20 01:30 03/15/20 01:29 Sodium Chloride 1,000 ml @ 150 mls/hr Q8H 02/13/20 20:30 03/14/20 20:29 02/13/20 23:47 LEVEL 1 SEPSIS INFECTION CRITE: ABX Therapy LEVEL 2-SIRS (LIST ALL THAT AP: None/Not assessed Hematologic Evidence: None/Not assessed Hepatic Evidence: None/Not assessed Neurological Evidence: None/Not assessed Renal Evidence: None/Not assessed O2 Sat by Pulse Oximetry: 90 Plan Assessment Assessment: 79-year-old male with urinary outlet obstruction with pyelonephritis PSA has returned to normal range patient does have an extensive cardiac history as above spoke with Dr. Hua will do cardiac work-up to evaluate if patient is a potential candidate for any procedures Plan: Prostate hyperplasia with urinary obstruction: PSA 0.[address] Hua with urology he will see the patient. Franco catheter placed to relieve obstruction. Patient declined cystoscopy here will continue to use the Franco catheter and follow-up with his regular doctors in [place] per his preference and his daughter's preference Pyelonephritis: We will treat with ceftriaxone pending urine cultures Patient discharged on Cipro pending further culture results Renal insufficiency: Likely due to the above last creatinine approximately 5 ye ars ago was 1 creatinine is 3 today. Resolved with Franco DVT prophylaxis SCDs JACQUELINE CALLE MD Feb 14, 2020 11:17
--- NOTE | 2020-02-14 11:22 | CNH ---
DATE OF CONSULTATION: 02/14/2020 This is a 79-year-old male who was admitted last night because of urinary retention. The patient has indwelling Franco catheter. The patient was referred for further urological evaluation. The laboratory except for the creatinine was a little bit elevated to 3 and patient has a previous history of heart disease. Currently, the vital signs are stable and he needs a cystoscopic evaluation for further management. Case was discussed with the patient and also with her daughter; however, the daughter wanted him to be discharged today and to be brought back to where he lives in [place] for further management were all his physicians reside. FINAL DIAGNOSIS: Urinary retention Buzz Hua MD DR: REE/clinton JOB# [id number] VALDEMAR
[2020-02-14 12:30] VITALS: BP 93/55
--- NOTE | 2020-02-14 17:05 | DIREP ---
PROCEDURE:CHEST 1 VIEW COMPARISON:None. INDICATIONS:metastasis FINDINGS: LUNGS/PLEURA:Bibasilar subsegmental atelectasis. Suboptimal inspiration with low lung volumes. No dense consolidation, definite pleural effusion, or pneumothorax. VASCULATURE:Normal. Unremarkable pulmonary vasculature. CARDIAC:Normal heart size for technique. Sternotomy wires noted. Implanted dual lead pacing device over left chest. MEDIASTINUM:Normal. No visible mass or adenopathy. BONES:No acute pathology. OTHER:Negative. Due to technical difficulties at the acquisition site, this exam was not made available for interpretation until 4:09 p.m., 02/14/2020. CONCLUSION: Suboptimal inspiration with low lung volumes. Bibasilar subsegmental atelectasis. Dictated by: Piter Perla M.D. on 02/14/2020 at 04:59 PM
[2020-02-15] MEDS ORDERED: ZESTRIL PO SCH (09:00)
[2020-02-15] MEDS ORDERED: ASPIRIN PO SCH (09:00)
[2020-02-15] MEDS ORDERED: TOPROL XL PO SCH (09:00)
== END 2020-02-14 13:15 | disposition home or self-care (01) ==
LOC: ER 12:06 → INTOOBSV 20:22 → MS 20:22
PROVIDERS: ADMIT Family Medicine; ATTEND Family Medicine
DX: N40.1 Benign prostatic hyperplasia with lower urinary tract symptoms (principal); Z20.828 Contact with and (suspected) exposure to other viral communicable diseases; N13.8 Other obstructive and reflux uropathy; C61 Malignant neoplasm of prostate; N10 Acute pyelonephritis; R33.8 Other retention of urine; N28.9 Disorder of kidney and ureter, unspecified; I25.10 Atherosclerotic heart disease of native coronary artery without angina pectoris; I10 Essential (primary) hypertension; E87.6 Hypokalemia; I25.3 Aneurysm of heart; I47.2 Ventricular tachycardia; I49.01 Ventricular fibrillation; Z79.82 Long term (current) use of aspirin; Z79.899 Other long term (current) drug therapy
CPT/HCPCS: 36415; 71045; 74176; 80053; 81000; 83735; 84153; 85025; 87426; 93005; 93306; 96365; 96366; 96375; 99285; G0378; J0696; J2405; J3010; J7030; J7050; J7120